=== PATIENT | female | born 1995 | race Caucasian/White ===

== ENCOUNTER 2017-03-18 14:11 | Emergency (ER) | payer BC, OTHER ==
[~2017-03-18] VITALS: Ht 170.2 cm; Wt 53.2 kg
[2017-03-18 14:36] VITALS: BP 106/74
== END 2017-03-18 17:22 | disposition home or self-care (01) ==
LOC: ED 16:35
DX: S46.812A Strain of other muscles, fascia and tendons at shoulder and upper arm level, left arm, initial encounter (principal); W19.XXXA Unspecified fall, initial encounter; Y93.89 Activity, other specified; Y92.89 Other specified places as the place of occurrence of the external cause; Y99.8 Other external cause status
CPT/HCPCS: 99284